=== PATIENT | male | born 1990 | race Caucasian/White ===

== ENCOUNTER 2022-11-10 15:10 | Emergency (ER) | payer OTHER ==
[2022-11-10] MEDS ORDERED: Ibuprofen 800 MG TAB ONE (15:46)
== END 2022-11-10 16:34 | disposition home or self-care (01) ==
LOC: MADERS 15:10
DX: S93.402A Sprain of unspecified ligament of left ankle, initial encounter (principal); F17.210 Nicotine dependence, cigarettes, uncomplicated; X50.1XXA Overexertion from prolonged static or awkward postures, initial encounter